=== PATIENT | female | born 1945 | race Hispanic/Latino ===

== ENCOUNTER 2017-11-01 15:41 | Emergency (ER) | payer MEDICARE ==
[~2017-11-01] VITALS: Ht 160 cm; Wt 61.7 kg
[~2017-11-01 15:41] MED LIST: DIOVAN160 MG PO; GLIPIZIDE ER5 MG PO; LISINOPRIL10 MG PO; MELOXICAM7.5 MG PO; METFORMIN HCL500 M2 PO; NIFEDICAL XL30 MG PO; OMEPRAZOLE40 MG PO; SIMVASTATIN40 MG PO
[2017-11-01] MEDS ORDERED: DIATRIZOATE MEGL/DIATRIZOA SOD 30 ML BTL PO ONE (19:15)
[2017-11-01] MEDS ORDERED: ACETAMINOPHEN 325 MG TAB PO ONE (19:15)
--- NOTE | 2017-11-01 19:24 | Diagnostic Imaging Report ---
Exams: Head and cervical spine CTs without IV contrast History: Fall, pain Comparison studies: None. Technique: Axial images were obtained from the brain and cervical spine. Coronal and sagittal images reconstructed from the axial data. Intravenous contrast: None Findings: Head CT: Scalp: Incidental 3 mm dystrophic calcification in the midline frontal scalp. Minimal linear scarring in the left frontal scalp. Bones: No fractures, blastic or lytic lesions. Extra-axial spaces: No masses. No fluid collections. Brain sulci: Mildly prominent. Ventricles: Mild compensatory dilatation. No hydrocephalus. Parenchyma: No mass, acute hemorrhage or acute or chronic cortical vascular insults. Subtle hypodensities in the periventricular white matter are nonspecific most compatible with chronic small vessel ischemic changes. Subtle asymmetric hypodensity in the anterior limb of the left internal capsule may reflect variant prominent perivascular space or chronic small vessel ischemic changes. Sellar/suprasellar region: No abnormalities. Craniocervical junction: The foramen magnum is patent. No Chiari one malformation. Cervical spine CT: Fractures: None. Soft tissues: No gross abnormalities. Atlantoaxial articulation: Intact. Alignment: Normal lordosis. No subluxations. Cervicomedullary junction: No abnormalities. The foramen magnum is patent. Vertebrae: No infection or neoplasm. Degenerative changes: Mildly degenerated disc with mild loss of disc height at C4-C5 and at C5-C6. Mild canal stenosis at C3-C4 due to a broad-based central disc protrusion. Mild canal stenosis at C4-C5 and C5-C6 due to disc osteophyte complexes. Moderate foraminal stenosis bilaterally at C4-C5 and at C5-C6 due to uncovertebral arthrosis. Incidental findings: Atherosclerotic calcifications in the common carotid arteries, cervical carotid bulbs and in the carotid siphons. IMPRESSION: Head CT: 1. No acute abnormalities. 2. Mild generalized volume loss with mild chronic microvascular ischemic changes. Cervical spine CT: 1. No cervical spine fracture or subluxation. 2. Degenerative changes as described. 3. Cannot adequate evaluate ligament, spinal cord and or vascular abnormalities on the basis of this examination. Signed by: Dr. Meir Cifuentes M.D. on 11/01/2017 7:20 PM
[2017-11-01 19:32] LABS: BASOPHILS % 0.2 % (0.0-1.0); EOSINOPHILS % 0.2 % (0.0-6.0); HEMATOCRIT 36.3 % (34.2-44.1); HEMOGLOBIN 12.1 g/dL (12.0-16.0); LYMPHOCYTES % 9.5 % (18.0-39.1); MEAN CORPUSCULAR HEMOGLOBIN 27.9 pg (28-32); MEAN CORPUSCULAR HGB CONC 33.3 g/dL (31-35); MEAN CORPUSCULAR VOLUME 83.8 fL (81-99); MONOCYTES # (AUTO) 0.8 (0.2-0.8); MONOCYTES % 7.6 % (4.4-11.3); NEUTROPHILS # (AUTO) 8.8 (2.1-6.9); NEUTROPHILS % 82.2 % (38.7-80.0); PLATELET COUNT 277 x10e3/uL (140-360); RED BLOOD COUNT 4.33 x10e6/uL (3.6-5.1); RED CELL DISTRIBUTION WIDTH 13.2 % (11.7-14.4)
--- NOTE | 2017-11-01 19:33 | Diagnostic Imaging Report ---
EXAMINATION: Lumbar spine series. CLINICAL HISTORY: AMS, status post fall today COMPARISON: None. DISCUSSION: 5 views of the lumbar spine are submitted for interpretation. Five nonrib-bearing lumbar type vertebral bodies are identified. No acute, displaced fractures or dislocation. No significant spondylolisthesis. Bilateral oblique views show no spondylolysis. Degenerative disc changes in the lower thoracic and lumbosacral spine, with osteophytosis and mild intervertebral disc space narrowing predominantly at T11-T12, L1-L2 and L3-L4. Facet hypertrophy L4-L5 and L5-S1. Vertebral body heights are preserved. Sacroiliac joints are unremarkable. Soft tissues are unremarkable. Marked amount of retained stool in the colon, particularly in the distal sigmoid/rectum IMPRESSION: 1. No acute abnormalities in the lumbosacral spine. 2. Marked amount of retained stool in the colon, particularly in the distal sigmoid/rectum, suggesting constipation. The staff physician below has personally reviewed this exam on the date of dictation. Signed by: Dr. Marvin Lai M.D. on 11/01/2017 7:30 PM
[2017-11-01 19:48] LABS: ALBUMIN 3.6 g/dL (3.5-5.0); ALBUMIN/GLOBULIN RATIO 0.9 (0.8-2.0); ANION GAP 16.2 mmol/L (8-16); CREATININE, SERUM 1.3 mg/dL (0.57-1.11); POTASSIUM 4.2 mmol/L (3.5-5.1)
[2017-11-01 20:03] LABS: BILIRUBIN,URINE NEGATIVE (NEGATIVE); CLARITY,URINE CLEAR (CLEAR); COLOR,URINE YELLOW (YELLOW); KETONES,URINE TRACE (NEGATIVE); LEUKOCYTE ESTERASE ,URINE NEGATIVE (NEGATIVE); NITRITE,URINE NEGATIVE (NEGATIVE); PROTEIN,URINE DIPSTICK 1+ (NEGATIVE); URINE UROBILINOGEN 0.2 mg/dL (0.2 - 1)
[2017-11-01 20:23] LABS: BACTERIA,URINE RARE /HPF; EPITHELIAL CELLS,URINE FEW /LPF; MUCUS,URINE FEW (RARE); RBC,URINE 0-5 /HPF (0-5)
--- NOTE | 2017-11-01 21:26 | Diagnostic Imaging Report ---
KNEE LEFT THREE VIEWS Comparison: None Clinical history: Fall, altered Findings: No fracture or dislocation. Minimal degenerative spurring. No significant joint effusion appreciated on crosstable lateral. Impression: No acute bony abnormality Signed by: Dr Magdalena Leon MD on 11/01/2017 9:23 PM
--- NOTE | 2017-11-01 21:58 | Diagnostic Imaging Report ---
EXAM: CT ABDOMEN/PELVIS WO DATE: 11/01/2017 7:06 PM INDICATION: Abdominal pain status post fall COMPARISON: None TECHNIQUE: The abdomen and pelvis were scanned using a multidetector helical scanner. Coronal and sagittal reformations were obtained. Routine protocol performed. IV Contrast: 0 ml Isovue 370 FINDINGS: Lack of IV contrast decreases sensitivity in evaluating abdominal and pelvic organs. LOWER THORAX: Minimal bibasilar atelectasis/scarring. LIVER/BILIARY: Hepatic steatosis. Poor evaluation for underlying lesion given noncontrast evaluation. Pneumobilia status post cholecystectomy. GALLBLADDER: Absent SPLEEN: Unremarkable PANCREAS: Unremarkable ADRENALS: No nodules KIDNEYS: No stone disease or hydronephrosis. Left inferior renal cystic lesion incompletely characterized. GI TRACT: Postsurgical change status post sigmoidectomy. Scattered diverticuli. Copious rectal stool burden with mild perirectal stranding. VESSELS: Scattered atherosclerotic calcifications PERITONEUM/RETROPERITONEUM: No free air. There is a well-defined collection extending from the greater curvature of the stomach to the left anterior abdominal wall measuring 3 x 2.6 x 8.4 cm. LYMPH NODES: No lymphadenopathy REPRODUCTIVE ORGANS/BLADDER: Unremarkable SOFT TISSUES: Unremarkable BONES: Multilevel degenerative changes. IMPRESSION: 1. Copious rectal stool burden with mild adjacent stranding. 2. Fluid collection extending from the greater curvature of the stomach to the left anterior abdominal wall, likely chronic related to prior hernia repair. Signed by: Dr Magdalena Leon MD on 11/01/2017 9:55 PM
--- NOTE | 2017-11-01 22:38 | Diagnostic Imaging Report ---
SHOULDER LEFT COMPLETE Comparison: None Clinical history: Fall Findings: No fracture or dislocation. Mild to moderate glenohumeral and acromioclavicular degenerative changes. Impression: No acute bony abnormality Signed by: Dr Magdalena Leon MD on 11/01/2017 10:34 PM
== END 2017-11-01 23:03 | disposition home or self-care (01) ==
LOC: ER 15:41
DX: M54.5 Low back pain (principal); S33.5XXA Sprain of ligaments of lumbar spine, initial encounter; S40.011A Contusion of right shoulder, initial encounter; S80.02XA Contusion of left knee, initial encounter; W01.0XXA Fall on same level from slipping, tripping and stumbling without subsequent striking against object, initial encounter; Y93.89 Activity, other specified; Y92.002 Bathroom of unspecified non-institutional (private) residence as the place of occurrence of the external cause; N30.00 Acute cystitis without hematuria; K59.00 Constipation, unspecified; I10 Essential (primary) hypertension; E11.9 Type 2 diabetes mellitus without complications
CPT/HCPCS: 36415; 70450; 72110; 72125; 74176; 80053; 81001; 82150; 83690; 85025

== ENCOUNTER 2019-05-18 11:39 | Inpatient (IN) | payer MEDICARE ==
[~2019-05-18] VITALS: Ht 160 cm; Wt 61.7 kg
--- OUTSIDE RECORDS SUMMARY | 2019-05-18 11:41 | XMS REPORT ---
Author Author [facility] Address Unknown Phone Unavailable Care Team Providers Care Senior Sales Compensation Analyst Name Role Phone Mallory ENG Unavailable Unavailable Problems This patient has no known problems. Allergies, Adverse Reactions, Alerts This patient has no known allergies or adverse reactions. Medications This patient has no known medications. Results Test Description Test Time Test Comments Text Results Atomic Results Result Comments SHOULDER LEFT COMPLETE [place] [address] Patient Name: LATASHA FIGUEROA MR #: [id number] : 1945 Age/Sex: 72/F Req #: [id number] Adm Physician: Ordered by: OLIVIA ENG MD Report #: [id number] Location: ER Room/Bed: Procedure: [id number] DX/SHOULDER LEFT COMPLETE Exam Date: 11/01/17 Exam Time: 2200 REPORT STATUS: Signed SHOULDER LEFT COMPLETE Comparison: None Clinical history: Fall Findings: No fracture or dislocation. Mild to moderate glenohumeral and acromioclavicular degenerative changes. Impression: No acute bony abnormality Signed by: Dr Anamika Leon MD on 11/01/2017 10:34 PM Dictated By: ANAMIKA LEON MD 33 Transcribed By: SHELLI on 11/01/172233 COPY TO: OLIVIA ENG MD KNEE LEFT THREE VIEWS [place] [address] Patient Name: LATASHA FIGUEROA MR #: [id number] : 1945 Age/Sex: 72/F Req #: [id number] Adm Physician: Ordered by: NATO VALENCIA MD Report #: [id number] Location: ER Room/Bed: Procedure: [id number] DX/KNEE LEFT THREE VIEWS Exam Date: 11/01/17 Exam Time: 2029 REPORT STATUS: Signed KNEE LEFT THREE VIEWS Comparison: None Clinical history: Fall, altered Findings: No fracture or dislocation. Minimal degenerative spurring. No significant joint effusion appreciated on crosstable lateral. Impression: No acute bony abnormality Signed by: Dr Anamika Leon MD on 11/01/2017 9:23 PM Dictated By: ANAMIKA LEON MD 22 Transcribed By: SHELLI on 11/01/172122 COPY TO: NATO VALENCIA MD CT ABDOMEN/PELVIS WO [place] [address] Patient Name: LATASHA FIGUEROA MR #: [id number] : 1945 Age/Sex: 72/F Req #: [id number] Adm Physician: Ordered by: NATO VALENCIA MD Report #: [id number] Location: ER Room/Bed: Procedure: [id number] CT/CT ABDOMEN/PELVIS WO Exam Date: 11/01/17 Exam Time: 2014 REPORT STATUS: Signed EXAM: CT ABDOMEN/PELVIS WO DATE: 11/01/2017 7:06 PM INDICATION: Abdominal pain status post fall COMPARISON: None TECHNIQUE: The abdomen and pelvis were scanned using a multidetector helical scanner. Coronal and sagittal reformations were obtained. Routine protocol performed. IV Contrast: 0 ml Isovue 370 FINDINGS: Lack of IV contrast decreases sensitivity in evaluating abdominal and pelvic organs. LOWER THORAX: Minimal bibasilar atelectasis/scarring. LIVER/BILIARY: Hepatic steatosis. Poor evaluation for underlying lesion given noncontrast evaluation. Pneumobilia status post cholecystectomy. GALLBLADDER: Absent SPLEEN: Unremarkable PANCREAS: Unremarkable ADRENALS: No nodules KIDNEYS: No stone disease or hydronephrosis. Left inferior renal cystic lesion incompletely characterized. GI TRACT: Postsurgical change status post sigmoidectomy. Scattered diverticuli. Copious rectal stool burden with mild perirectal stranding. VESSELS: Scattered atherosclerotic calcifications PERITONEUM/RETROPERITONEUM: No free air. There is a well-defined collection extending from the greater curvature of the stomach to the left anterior abdominal wall measuring 3 x 2.6 x 8.4 cm. LYMPH NODES: No lymphadenopathy REPRODUCTIVE ORGANS/BLADDER: Unremarkable SOFT TISSUES: Unremarkable BONES: Multilevel degenerative changes. IMPRESSION: 1. Copious rectal stool burden with mild adjacent stranding. 2. Fluid collection extending from the greater curvature of the stomach to the left anterior abdominal wall, likely chronic related to prior hernia repair. Signed by: Dr Anamika Leon MD on 11/01/2017 9:55 PM Dictated By: ANAMIKA LOEN MD 54 Transcribed By: SHELLI on 10/16 COPY TO: NATO VALENCIA MD SP LUMBAR, COMPLETE MIN 4VW [place] [address] Patient Name: LATASHA FIGUEROA MR #: [id number] : 1945 Age/Sex: 72/F Req #: [id number] [facility] Physician: Ordered by: OLIVIA ENG MD Report #: [id number] Location: Room/Bed: Procedure: [id number] DX/SP LUMBAR, COMPLETE MIN 4VW Exam Date: 11/01/17 Exam Time: 1844 REPORT STATUS: Signed EXAMINATION: Lumbar spine series. CLINICAL HISTORY: AMS, status post fall today COMPARISON: None. DISCUSSION: 5 views of the lumbar spine are submitted for interpretation. Five nonrib-bearing lumbar type vertebral bodies are identified. No acute, displaced fractures or dislocation. No significant spondylolisthesis. Bilateral oblique views show no spondylolysis. Degenerative disc changes in the lower thoracic and lumbosacral spine, with osteophytosis and mild intervertebral disc space narrowing predominantly at T11-T12, L1-L2 and L3-L4. Facet hypertrophy L4-L5 and L5-S1. Vertebral body heights are preserved. Sacroiliac joints are unremarkable. Soft tissues are unremarkable. Marked amount of retained stool in the colon, particularly in the distal sigmoid/rectum IMPRESSION: 1. No acute abnormalities in the lumbosacral spine. 2. Marked amount of retained stool in the colon, particularly in the distal sigmoid/rectum, suggesting constipation. The staff physician below has personally reviewed this exam on the date of dictation. Signed by: Dr. Mariano Lai M.D. on 11/01/2017 7:30 PM Dictated By: MARIANO LAI MD 29 Transcribed By: SHELLI on 11/01/171929 COPY TO: OLIVIA ENG MD CT CERVICAL SPINE WO [facility] [address] [place] [address] Patient Name: LATASHA FIGUEROA MR #: [id number] : 1945 Age/Sex: 72/F Req #: [id number] Adm Physician: Ordered by: OLIVIA ENG MD Report #: [id number] Location: ER Room/Bed: Procedure: [id number] CT/CT CERVICAL SPINE WO Exam Date: 11/01/17 Exam Time: 1830 REPORT STATUS: Signed Exams: Head and cervical spine CTs without IV contrast History: Fall, pain Comparison studies: None. Technique: Axial images were obtained from the brain and cervical spine. Coronal and sagittal images reconstructed from the axial data. Intravenous contrast: None Findings: Head CT: Scalp: Incidental 3 mm dystrophic calcification in the midline frontal scalp. Minimal linear scarring in the left frontal scalp. Bones: No fractures, blastic or lytic lesions. Extra-axial spaces: No masses. No fluid collections. Brain sulci: Mildly prominent. Ventricles: Mild compensatory dilatation. No hydrocephalus. Parenchyma: No mass, acute hemorrhage or acute or chronic cortical vascular insults. Subtle hypodensities in the periventricular white matter are nonspecific most compatible with chronic small vessel ischemic changes. Subtle asymmetric hypodensity in the anterior limb of the left internal capsule may reflect variant prominent perivascular space or chronic small vessel ischemic changes. Sellar/suprasellar region: No abnormalities. Craniocervical junction: The foramen magnum is patent. No Chiari one malformation. Cervical spine CT: Fractures: None. Soft tissues: No gross abnormalities. Atlantoaxial articulation: Intact. Alignment: Normal lordosis. No subluxations. Cervicomedullary junction: No abnormalities. The foramen magnum is patent. Vertebrae: No infection or neoplasm. Degenerative changes: Mildly degenerated disc with mild loss of disc height at C4-C5 and at C5-C6. Mild canal stenosis at C3-C4 due to a broad-based central disc protrusion. Mild canal stenosis at C4-C5 and C5-C6 due to disc osteophyte complexes. Moderate foraminal stenosis bilaterally at C4-C5 and at C5-C6 due to uncovertebral arthrosis. Incidental findings: Atherosclerotic calcifications in the common carotid arteries, cervical carotid bulbs and in the carotid siphons. IMPRESSION: Head CT: 1. No acute abnormalities. 2. Mild generalized volume loss with mild chronic microvascular ischemic changes. Cervical spine CT: 1. No cervical spine fracture or subluxation. 2. Degenerative changes as described. 3. Cannot adequate evaluate ligament, spinal cord and or vascular abnormalities on the basis of this examination. Signed by: Dr. Janelle Cifuentes M.D. on 11/01/2017 7:20 PM Dictated By: JANELLE CIFUENTES MD 19 Transcribed By: SHELLI on 11/01/171919 COPY TO: OLIVIA ENG MD CT BRAIN WO [place] [address] Patient Name: LATASHA FIGUEROA MR #: [id number] : 1945 Age/Sex: 72/F Req #: [id number] Adm Physician: Ordered by: OLIVIA ENG MD Report #: [id number] Location: Room/Bed: Procedure: [id number] CT/CT BRAIN WO Exam Date: 11/01/17 Exam Time: 1830 REPORT STATUS: Signed Exams: Head and cervical spine CTs without IV contrast History: Fall, pain Comparison studies: None. Technique: Axial images were obtained from the brain and cervical spine. Coronal and sagittal images reconstructed from the axial data. Intravenous contrast: None Findings: Head CT: Scalp: Incidental 3 mm dystrophic calcification in the midline frontal scalp. Minimal linear scarring in the left frontal scalp. Bones: No fractures, blastic or lytic lesions. Extra-axial spaces: No masses. No fluid collections. Brain sulci: Mildly prominent. Ventricles: Mild compensatory dilatation. No hydrocephalus. Parenchyma: No mass, acute hemorrhage or acute or chronic cortical vascular insults. Subtle hypodensities in the periventricular white matter are nonspecific most compatible with chronic s mall vessel ischemic changes. Subtle asymmetric hypodensity in the anterior limb of the left internal capsule may reflect variant prominent perivascular space or chronic small vessel ischemic changes. Sellar/suprasellar region: No abnormalities. Craniocervical junction: The foramen magnum is patent. No Chiari one malformation. Cervical spine CT: Fractures: None. Soft tissues: No gross abnormalities. Atlantoaxial articulation: Intact. Alignment: Normal lordosis. No subluxations. Cervicomedullary junction: No abnormalities. The foramen magnum is patent. Vertebrae: No infection or neoplasm. Degenerative changes: Mildly degenerated disc with mild loss of disc height at C4-C5 and at C5-C6. Mild canal stenosis at C3-C4 due to a broad-based central disc protrusion. Mild canal stenosis at C4-C5 and C5-C6 due to disc osteophyte complexes. Moderate foraminal stenosis bilaterally at C4-C5 and at C5-C6 due to uncovertebral arthrosis. Incidental findings: Atherosclerotic calcifications in the common carotid arteries, cervical carotid bulbs and in the carotid siphons.
[2019-05-18 12:47] LABS: BASOPHILS % 0.3 % (0.0-1.0); EOSINOPHILS % 0.1 % (0.0-6.0); HEMATOCRIT 41.9 % (34.2-44.1); HEMOGLOBIN 13.2 g/dL (12.0-16.0); LYMPHOCYTES # (AUTO) 1.8 (1.0-3.2); MEAN CORPUSCULAR HGB CONC 31.5 g/dL (31-35); MONOCYTES # (AUTO) 0.5 (0.2-0.8); MONOCYTES % 6.6 % (4.4-11.3); NEUTROPHILS # (AUTO) 5.5 (2.1-6.9); NEUTROPHILS % 69.7 % (38.7-80.0); PLATELET COUNT 319 x10e3/uL (140-360); RED BLOOD COUNT 4.71 x10e6/uL (3.6-5.1); RED CELL DISTRIBUTION WIDTH 12.7 % (11.7-14.4)
[2019-05-18 13:00] LABS: INR 0.86; PROTHROMBIN TIME 12.2 seconds (11.9-14.5)
--- NOTE | 2019-05-18 13:06 | Diagnostic Imaging Report ---
EXAMINATION: Head CT HISTORY: Slurred speech , headache, dizziness COMPARISON: None available TECHNIQUE: Multidetector axial images were obtained without contrast from the foramen magnum to the vertex . The images were reconstructed using brain and bone algorithms. Thin section brain images were reformatted into coronal and sagittal planes. Image quality: Motion/streaking artifact limits the evaluation of the skull base and posterior cranial fossa. Dose modulation, iterative reconstruction, and/or weight based adjustment of the mA/kV was utilized to reduce the radiation dose to as low as reasonably achievable. FINDINGS: Parenchyma: 1. Few scattered and mildly confluent periventricular white matter hypodensities extending along the anterior limb of the internal capsules, most likely nonspecific chronic microvascular ischemic changes. 2. No mass or hemorrhage. No CT evidence of acute territorial vascular insult. Extra-axial spaces:No abnormal density. No extra-axial fluid collections Brain volume: Normal for age. Ventricles: No hydrocephalus or displacement. Arteries: No density suggestive of thrombus. Dural sinuses: No abnormal density. Extra-axial spaces: No abnormal density. Foramen magnum: No mass, Chiari malformation, or basilar invagination. Sella: No obvious mass. Paranasal/mastoid sinuses: Imaged portions unremarkable. Skull/Scalp: No lytic or blastic lesions. No fractures. IMPRESSION: 1. No acute intracranial hemorrhage or cortical infarcts. 2. Mild white matter chronic microvascular ischemic changes. Signed by: Dr. Cleo Tena M.D. on 05/18/2019 1:02 PM
[2019-05-18 13:09] LABS: ALANINE AMINOTRANSFERASE 14 IU/L (0-55); ALBUMIN 4.1 g/dL (3.5-5.0); ALBUMIN/GLOBULIN RATIO 1.2 (0.8-2.0); ALKALINE PHOSPHATASE 145 IU/L (40-150); ANION GAP 14.1 mmol/L (8-16); BLOOD UREA NITROGEN 20 mg/dL (7-26); BUN/CREATININE RATIO 20 (6-25); CARBON DIOXIDE 23 mmol/L (22-29); CHLORIDE 100 mmol/L (98-107); CREATINE KINASE 14 IU/L (29-168); EST GLOMERULAR FILTRATION RATE 54 ML/MIN (60-); GLUCOSE 285 mg/dL (74-118); POTASSIUM 4.1 mmol/L (3.5-5.1); SODIUM 133 mmol/L (136-145)
--- NOTE | 2019-05-18 13:10 | Diagnostic Imaging Report ---
EXAMINATION: CHEST SINGLE (PORTABLE) INDICATION: Dysarthria COMPARISON: None FINDINGS: LINES/TUBES:EKG leads overlie the chest. LUNGS:The lungs are well-inflated. No focal consolidation or pulmonary edema. PLEURA:No pleural effusion or pneumothorax. MEDIASTINUM:The cardiomediastinal silhouette appears normal in size and shape. BONES/SOFT TISSUES:No acute osseous injury. ABDOMEN:No free air under the diaphragm. IMPRESSION: No focal pneumonia or pulmonary edema. Signed by: Meaghan Hays MD on 05/18/2019 1:06 PM
[2019-05-18 13:13] LABS: CALCIUM 13.1 mg/dL (8.4-10.2); MAGNESIUM 1.1 MG/DL (1.3-2.1)
[2019-05-18] MEDS ORDERED: MAGNESIUM SULFATE 2GM/50ML 50 ML IV ONE (13:15)
[2019-05-18] MEDS ORDERED: SODIUM CHLORIDE 0.9% 500ML 500 ML IV ONE (13:30)
[2019-05-18 13:50] LABS: BILIRUBIN,URINE NEGATIVE (NEGATIVE); CLARITY,URINE CLEAR (CLEAR); COLOR,URINE YELLOW (YELLOW); KETONES,URINE NEGATIVE (NEGATIVE); LEUKOCYTE ESTERASE ,URINE NEGATIVE (NEGATIVE); NITRITE,URINE NEGATIVE (NEGATIVE); PROTEIN,URINE DIPSTICK TRACE (NEGATIVE); URINE UROBILINOGEN 0.2 mg/dL (0.2 - 1)
[2019-05-18 14:18] LABS: BACTERIA,URINE FEW /HPF; EPITHELIAL CELLS,URINE FEW /LPF; RBC,URINE 0-5 /HPF (0-5); WBC,URINE (MAN) 0-5 /HPF (0-5)
[2019-05-18 14:19] LABS: AMORPHOUS SEDIMENT,URINE FEW (FEW)
[2019-05-18] MEDS ORDERED: DEXTROSE 50% SYRINGE 50 ML IV PRN (14:45)
[2019-05-18] MEDS: INSULIN REGULAR, HUMAN 100 UNIT/1 ML 3ML VIAL SQ SCH ×2 (17:10→22:00)
[2019-05-18] MEDS ORDERED: SERTRALINE HCL50 MG PO (17:57)
[2019-05-18 21:27] VITALS: BP 190/92
[2019-05-18 21:37] LABS: CREATINE KINASE < 7 IU/L (29-168)
[2019-05-18 22:00] VITALS: BP 190/92
[2019-05-19] VITALS (8 sets, daily range): BP systolic 143–189; BP diastolic 72–86
[2019-05-19 06:11] LABS: CREATINE KINASE 13 IU/L (29-168)
--- NOTE | 2019-05-19 07:10 | NUR ---
H&P cc: dizziness HPI: 74yoF, PCP Trav Horner, developed dizziness and weakness. Pt was rehab nearby when symptoms developed; Pt also had slurred speech. All hx per daughter at bedside; PMH: DM2, HTN, HLD, physical deconditioning PSHx: herniorraphy Allergies; see emr FH/SH: ; no cigs/etoh; Meds; see MAR ROS: unobtainable V/S: revd PE tired appearing anicteric ns1s2 mod bs soft nt nd no e/t awake; confused skin dry flat affect labs/meds; revd A/P: 74yoF TIA Hypercalcemia Hypomagnesemia Hyponatremia SANTY DM2 HTN HLD PLAN CT brain negative; IV hydration Hba1c/lipids PT consult; Lovenox/ppi Dispo: f/u labs this am; d/w daughter at bedside; Robert Monroe MD, PhD.
[2019-05-19] MEDS: INSULIN REGULAR, HUMAN 100 UNIT/1 ML 3ML VIAL SQ SCH ×4 (07:30→22:22)
[2019-05-19 07:35] LABS: BASOPHILS % 0.3 % (0.0-1.0); EOSINOPHILS % 0.1 % (0.0-6.0); HEMATOCRIT 38.6 % (34.2-44.1); HEMOGLOBIN 12.8 g/dL (12.0-16.0); LYMPHOCYTES # (AUTO) 1.6 (1.0-3.2); LYMPHOCYTES % 22.9 % (18.0-39.1); MEAN CORPUSCULAR HEMOGLOBIN 28.7 pg (28-32); MEAN CORPUSCULAR HGB CONC 33.2 g/dL (31-35); MEAN CORPUSCULAR VOLUME 86.5 fL (81-99); MONOCYTES # (AUTO) 0.7 (0.2-0.8); MONOCYTES % 9.1 % (4.4-11.3); NEUTROPHILS # (AUTO) 4.8 (2.1-6.9); NEUTROPHILS % 67.3 % (38.7-80.0); PLATELET COUNT 348 x10e3/uL (140-360); RED BLOOD COUNT 4.46 x10e6/uL (3.6-5.1)
[2019-05-19 07:47] LABS: BLOOD UREA NITROGEN 16 mg/dL (7-26); BUN/CREATININE RATIO 22 (6-25); CALCIUM 12.4 mg/dL (8.4-10.2); CARBON DIOXIDE 23 mmol/L (22-29); CHLORIDE 103 mmol/L (98-107); CREATININE, SERUM 0.74 mg/dL (0.57-1.11); EST GLOMERULAR FILTRATION RATE > 60 ML/MIN (60-); GLUCOSE 122 mg/dL (74-118); SODIUM 136 mmol/L (136-145)
[2019-05-19 08:00] LABS: MAGNESIUM 1.6 MG/DL (1.3-2.1); PHOSPHORUS 2.5 MG/DL (2.3-4.7)
[2019-05-19 08:05] LABS: CHOL/HDL RATIO 4.2 (3.0-3.6)
[2019-05-19 09:00] LABS: CREATINE KINASE MB 0.6 ng/mL (0-5.0)
[2019-05-19] MEDS ORDERED: PANTOPRAZOLE SOD 40 MG TABEC PO SCH (09:00)
[2019-05-19] MEDS ORDERED: ASPIRIN 325 MG TAB PO SCH (09:00)
[2019-05-19] MEDS: SERTRALINE HCL 50 MG TAB PO SCH (09:19)
[2019-05-19] MEDS: NIFEDIPINE CR 30 MG TAB PO SCH (09:19)
[2019-05-19] MEDS: SODIUM CHLORIDE 0.9% 1000ML 1,000 ML IV SCH ×2 (09:19→18:28)
[2019-05-19] MEDS: PANTOPRAZOLE SOD 40 MG TABEC PO SCH (09:58)
[2019-05-19] MEDS: ENOXAPARIN SOD INJ 40 MG/0.4 ML SYR SC SCH (16:21)
[2019-05-19] MEDS: SIMVASTATIN 40 MG TAB PO SCH (21:44)
[2019-05-20] VITALS (8 sets, daily range): BP systolic 144–174; BP diastolic 70–91
[2019-05-20] MEDS: SODIUM CHLORIDE 0.9% 1000ML 1,000 ML IV SCH ×3 (06:07→21:32)
[2019-05-20] MEDS: SERTRALINE HCL 50 MG TAB PO SCH (08:22)
[2019-05-20] MEDS: INSULIN REGULAR, HUMAN 100 UNIT/1 ML 3ML VIAL SQ SCH ×4 (08:22→21:00)
[2019-05-20] MEDS: NIFEDIPINE CR 30 MG TAB PO SCH (08:22)
[2019-05-20] MEDS: ASPIRIN 81 MG CHEW TAB PO SCH (08:22)
--- NOTE | 2019-05-20 09:18 | NUR ---
IM- progress O/N: no events ROS: unobtainable V/S: revd PE tired appearing anicteric ns1s2 mod bs soft nt nd no e/t awake; confused skin dry flat affect labs/meds; revd A/P: 74yoF TIA Hypercalcemia Hypomagnesemia Hyponatremia SANTY DM2 HTN HLD PLAN CT brain negative; IV hydration Hba1c/lipids PT consult; Lovenox/ppi Dispo: f/u labs this am; d/w daughter at bedside; 3 check labs; Hba1c/LDL 9.7/94 Robert Monroe MD, PhD.
[2019-05-20 10:42] LABS: ANION GAP 13.1 mmol/L (8-16); BLOOD UREA NITROGEN 10 mg/dL (7-26); BUN/CREATININE RATIO 12 (6-25); CALCIUM 12.7 mg/dL (8.4-10.2); CARBON DIOXIDE 22 mmol/L (22-29); CHLORIDE 102 mmol/L (98-107); CREATININE, SERUM 0.86 mg/dL (0.57-1.11); EST GLOMERULAR FILTRATION RATE > 60 ML/MIN (60-); GLUCOSE 309 mg/dL (74-118); POTASSIUM 4.1 mmol/L (3.5-5.1); SODIUM 133 mmol/L (136-145)
--- NOTE | 2019-05-20 12:21 | NUR ---
Call placed to Dr. Monroe for inpatient order. Pt continues to have hypercalcemia. Awaiting his return call for orders.
--- NOTE | 2019-05-20 13:48 | NUR ---
Dr. Monroe returned call and was notified of elevated calcium, and 2 day obs order. He stated he wanted to see the pt and assess before making a dc plan decision. He will see the pt later this day.
[2019-05-20] MEDS: ENOXAPARIN SOD INJ 40 MG/0.4 ML SYR SC SCH (16:58)
[2019-05-20] MEDS ORDERED: FUROSEMIDE INJ 10 MG/ML 2 ML VIAL IV NR (20:00)
[2019-05-20] MEDS: SIMVASTATIN 40 MG TAB PO SCH (21:38)
[2019-05-21] VITALS (8 sets, daily range): BP systolic 134–177; BP diastolic 64–81
[2019-05-21 05:22] LABS: BASOPHILS % 0.3 % (0.0-1.0); EOSINOPHILS % 0.2 % (0.0-6.0); HEMATOCRIT 36.7 % (34.2-44.1); HEMOGLOBIN 11.8 g/dL (12.0-16.0); LYMPHOCYTES # (AUTO) 1.7 (1.0-3.2); LYMPHOCYTES % 29.2 % (18.0-39.1); MEAN CORPUSCULAR HEMOGLOBIN 28.5 pg (28-32); MEAN CORPUSCULAR HGB CONC 32.2 g/dL (31-35); MEAN CORPUSCULAR VOLUME 88.6 fL (81-99); MONOCYTES # (AUTO) 0.5 (0.2-0.8); MONOCYTES % 9.1 % (4.4-11.3); NEUTROPHILS # (AUTO) 3.6 (2.1-6.9); NEUTROPHILS % 60.9 % (38.7-80.0); PLATELET COUNT 320 x10e3/uL (140-360); RED BLOOD COUNT 4.14 x10e6/uL (3.6-5.1); RED CELL DISTRIBUTION WIDTH 13.2 % (11.7-14.4)
[2019-05-21 05:50] LABS: BLOOD UREA NITROGEN 9 mg/dL (7-26); BUN/CREATININE RATIO 11 (6-25); CALCIUM 11.3 mg/dL (8.4-10.2); CARBON DIOXIDE 21 mmol/L (22-29); CHLORIDE 107 mmol/L (98-107); CREATININE, SERUM 0.79 mg/dL (0.57-1.11); EST GLOMERULAR FILTRATION RATE > 60 ML/MIN (60-); GLUCOSE 242 mg/dL (74-118); SODIUM 139 mmol/L (136-145)
--- NOTE | 2019-05-21 07:00 | NUR ---
BEDSIDE SHIFT REPORT RECEIVED FROM THE FUEL BUYER RN. EDUCATED PT ABOUT FALL PRECAUTIONS. FAMILY AT BEDSIDE. BED IS LOW AND LOCKED. SIDE RAILS X2. BED ALARM IS ON. CALL LIGHT WITH IN EASY REACH. INSTRUCTED PT TO USE CALL LIGHT FOR ANY NEEDS. PT DENIES NEEDS AT THIS TIME.
--- NOTE | 2019-05-21 07:17 | NUR ---
IM- progress O/N: no events ROS: unobtainable V/S: revd PE tired appearing anicteric ns1s2 mod bs soft nt nd no e/t awake; confused skin dry flat affect labs/meds; revd A/P: 74yoF TIA Hypercalcemia Hypomagnesemia Hyponatremia SANTY DM2 HTN HLD PLAN CT brain negative; IV hydration Hba1c/lipids PT consult; Lovenox/ppi Dispo: f/u labs this am; d/w daughter at bedside; 11-3 check labs; Hba1c/LDL 9.7/94 11-4 Ca improving; rec'd more fluids and lasix x1. f/u studies; cont care; f/u MRI Robert Monroe MD, PhD.
[2019-05-21] MEDS: INSULIN REGULAR, HUMAN 100 UNIT/1 ML 3ML VIAL SQ SCH ×4 (08:30→21:10)
[2019-05-21] MEDS: SODIUM CHLORIDE 0.9% 1000ML 1,000 ML IV SCH ×3 (08:47→22:38)
[2019-05-21] MEDS: PANTOPRAZOLE SOD 40 MG TABEC PO SCH (08:53)
[2019-05-21] MEDS: ASPIRIN 81 MG CHEW TAB PO SCH (08:53)
[2019-05-21] MEDS: SERTRALINE HCL 50 MG TAB PO SCH (08:53)
[2019-05-21] MEDS: NIFEDIPINE CR 30 MG TAB PO SCH (08:54)
--- NOTE | 2019-05-21 12:15 | NUR ---
PAGED DR TOLEDO AND REPORTED PT BLOOD SUGAR LEVEL.
--- NOTE | 2019-05-21 12:30 | NUR ---
PAGED DR. TOLEDO TO REMOVE TELE FOR MRI, PER THE REQUEST FROM OVERHEAD CRANE INSPECTOR.
--- NOTE | 2019-05-21 13:05 | NUR ---
CALL BACK FROM DR. TOLEDO START LANTUS DAILY 7 UNITS. FIRST DOSE NOW. OKAY TO D/C TELEMETRY FOR MRI.
[2019-05-21] MEDS: INSULIN GLARGINE 100 UNITS/ML VIAL SQ SCH (13:27)
--- NOTE | 2019-05-21 14:59 | NUR ---
Nutrition Screen Note RD Recommendation for Physician: - Continue current diet Plan of Care: RD following, monitoring for tolerance and adequacy Nutrition reason for involvement: Nutrition Risk Trigger- MST Primary Diagnose(s): hypercalcemia, hypomagnesemia, dizziness, weakness PMH: DM2, HTN, HLD Ht: 63 in Wt: 136 lb BMI: 24.1 kg/m2 IBW: [address] Assessment: (05/21) 74 YOF admitted for hypercalcemia, seen today per MST screen. Pt discussed during am rounds. Pt reports good appetite and po intake ALGOLOGIST and currently, noted 75% intake per chart. Pt denies N/V/C/D. Pt denies wt loss, reports UBW of 143lb- pt weighed 145 lb at time of visit, questionable admit wt. Chart reviewed. Labs and meds reviewed. Skin intact. Will continue to monitor. Current Diet: 1800 ADA Malnutrition Evaluation (05/21/19) The patient does not meet criteria for a specified degree of malnutrition at this time. Will re-evaluate at follow-up as appropriate. Diet Education Needs Assessment: Diet education not indicated. Diet tolerance: tolerating Nutrition Care Level: Low Signed: Kallie Heredia RD, LD, [facility]
--- NOTE | 2019-05-21 15:15 | NUR ---
PT OFF UNIT FOR PROCEDURE IN SAFE CONDITION
--- NOTE | 2019-05-21 16:30 | NUR ---
PT BACK TO UNIT AFTER PROCEDURE.
[2019-05-21] MEDS: ENOXAPARIN SOD INJ 40 MG/0.4 ML SYR SC SCH (16:36)
--- NOTE | 2019-05-21 18:44 | Diagnostic Imaging Report ---
EXAMINATION: Brain MRI and MR angiogram of the [place] and [place] CLINICAL HISTORY: Dizziness, scattered speech for 5 days, evaluate for acute stroke. Hyperglycemia. COMPARISON: Head CT 05/18/2019 TECHNIQUE: Brain: Sagittal T2; axial DWI, T2, FLAIR, T1-IR, T2 gradient echo; coronal FLAIR. MRAs: 3D TOF and 2D-TOF images were obtained of the brain and neck. Image quality: Motion artifact mildly limits evaluation of some of the sequences include the angiograms. BRAIN MRI FINDINGS: Parenchyma: 1. Few scattered and periventricular white matter T2 and FLAIR hyperintense foci, most likely nonspecific chronic microvascular ischemic changes. 2. No mass, hemorrhage, acute or chronic infarcts. Skull: Unremarkable. Vessels: Expected flow voids present in the major arteries and dural sinuses. Extra-axial spaces: No abnormal signal intensity or mass effect. Brain volume: Within normal limits for age. Ventricles: No hydrocephalus or displacement. Foramen magnum: Unremarkable. Sella: Unremarkable. Paranasal / mastoid sinuses: No significant inflammatory disease. MRA OF [place] : The distal internal carotid, distal vertebral, basilar, and cerebral arteries are patent. No significant stenosis, occlusion, aneurysm, or arteriovenous malformation is seen. Anatomic variation: Anterior Communicating Artery: Not well visualized Posterior Communicating Arteries: Not well visualized Vertebral arteries: Codominant MRA OF THE NECK: If present, stenosis of the carotid bulbs is measured based on NASCET criteria i.e area of maximum stenosis compared to the cervical ICA distal to the bulb. Aortic arch and origin of the vessels: Unremarkable. Right Carotid Artery: The common carotid, carotid bulb, internal and external carotid arteries at the level of the neck are normal in caliber, and patent, no evidence of stenoses. Left Carotid Artery: The common carotid, carotid bulb, internal and external carotid arteries at the level of the neck are normal in caliber, and patent, no evidence of stenoses. Vertebral Arteries: Both are normal in morphology and caliber. Both are codominant. No significant stenosis is seen. IMPRESSION: Overall suboptimal studies due to patient's motion. Brain MRI: 1. No acute infarct. 2. Mildly nonspecific white matter chronic microvascular ischemic changes, stable compared to head CT of 05/18/2019. MR angiography of the head and neck: No large vessel occlusion or hemodynamically significant stenosis of the carotid or vertebral arteries in the head or neck. Signed by: Dr. Cleo Tena M.D. on 05/21/2019 6:41 PM
--- NOTE | 2019-05-21 19:00 | NUR ---
BEDSIDE SHIFT REPORT GIVEN TO THE CRITICAL CARE RN RN. PT DENIED FURTHER NEEDS. PT FAMILY AT BEDSIDE.
[2019-05-21] MEDS: SIMVASTATIN 40 MG TAB PO SCH (20:56)
[2019-05-22 00:10] VITALS: BP 163/97
[2019-05-22 04:57] VITALS: BP 168/87
[2019-05-22 05:17] LABS: BASOPHILS % 0.2 % (0.0-1.0); EOSINOPHILS % 0.2 % (0.0-6.0); HEMATOCRIT 34.8 % (34.2-44.1); HEMOGLOBIN 11.3 g/dL (12.0-16.0); LYMPHOCYTES # (AUTO) 1.7 (1.0-3.2); LYMPHOCYTES % 31.3 % (18.0-39.1); MEAN CORPUSCULAR HEMOGLOBIN 28.6 pg (28-32); MEAN CORPUSCULAR HGB CONC 32.5 g/dL (31-35); MEAN CORPUSCULAR VOLUME 88.1 fL (81-99); MONOCYTES # (AUTO) 0.5 (0.2-0.8); NEUTROPHILS # (AUTO) 3.1 (2.1-6.9); NEUTROPHILS % 58.1 % (38.7-80.0); PLATELET COUNT 316 x10e3/uL (140-360); RED BLOOD COUNT 3.95 x10e6/uL (3.6-5.1); RED CELL DISTRIBUTION WIDTH 13.1 % (11.7-14.4)
[2019-05-22 05:33] LABS: ANION GAP 12.7 mmol/L (8-16); BLOOD UREA NITROGEN 6 mg/dL (7-26); BUN/CREATININE RATIO 8 (6-25); CALCIUM 11.3 mg/dL (8.4-10.2); CARBON DIOXIDE 22 mmol/L (22-29); CHLORIDE 107 mmol/L (98-107); CREATININE, SERUM 0.74 mg/dL (0.57-1.11); EST GLOMERULAR FILTRATION RATE > 60 ML/MIN (60-); GLUCOSE 239 mg/dL (74-118); POTASSIUM 3.7 mmol/L (3.5-5.1); SODIUM 138 mmol/L (136-145)
--- NOTE | 2019-05-22 06:32 | NUR ---
IM- progress O/N: no events ROS: unobtainable V/S: revd PE tired appearing anicteric ns1s2 mod bs soft nt nd no e/t awake; confused skin dry flat affect labs/meds; revd A/P: 74yoF TIA Hypercalcemia Hypomagnesemia Hyponatremia SANTY DM2 HTN HLD PLAN CT brain negative; IV hydration Hba1c/lipids PT consult; Lovenox/ppi Dispo: f/u labs this am; d/w daughter at bedside; 05-20 check labs; Hba1c/LDL 9.7/94 - Ca improving; rec'd more fluids and lasix x1. f/u studies; cont care; f/u MRI 05-22 MRI/A negative; continue rehydration. give pamidronate now; recheck Ca in PM; possible d/c later today Robert Monroe MD, PhD.
[2019-05-22] MEDS: SODIUM CHLORIDE 0.9% 1000ML 1,000 ML IV SCH ×2 (07:00→14:21)
--- NOTE | 2019-05-22 07:00 | NUR ---
BEDSIDE SHIFT REPORT RECEIVED FROM THE MAINTENANCE MANAGER RN. EDUCATED PT ABOUT FALL PRECAUTIONS. FAMILY AT BEDSIDE. BED IS LOW AND LOCKED. SIDE RAILS X2. BED ALARM IS ON. CALL LIGHT WITH IN EASY REACH. INSTRUCTED PT TO USE CALL LIGHT FOR ANY NEEDS. PT VERBALIZED UNDERSTANDING. PT DENIES NEEDS AT THIS TIME.
[2019-05-22 07:22] VITALS: BP 112/61
[2019-05-22 07:41] VITALS: BP 112/61
[2019-05-22] MEDS: INSULIN REGULAR, HUMAN 100 UNIT/1 ML 3ML VIAL SQ SCH ×3 (08:00→16:45)
[2019-05-22] MEDS ORDERED: PAMIDRONATE DISODIUM 30 MG/VIAL IV STA (08:10)
[2019-05-22] MEDS: ASPIRIN 81 MG CHEW TAB PO SCH (08:14)
[2019-05-22] MEDS: PANTOPRAZOLE SOD 40 MG TABEC PO SCH (08:15)
[2019-05-22] MEDS: NIFEDIPINE CR 30 MG TAB PO SCH (08:15)
[2019-05-22] MEDS: SERTRALINE HCL 50 MG TAB PO SCH (08:16)
[2019-05-22] MEDS: INSULIN GLARGINE 100 UNITS/ML VIAL SQ SCH (09:00)
[2019-05-22] MEDS ORDERED: PAMIDRONATE DISODIUM 60 MG in SODIUM CHLORIDE 0.9% 500ML 500 ML IV ONE (09:15)
[2019-05-22 11:10] VITALS: BP 150/67
--- NOTE | 2019-05-22 14:15 | NUR ---
Visit made by the Spiritual Care Department Pastoral Visitor, Niharika Charles. PV provided pastoral presence, prayer, hospitality, and supportive listening. Pastoral Visitor informed pt/family of the scope of [employer] and availability. DIANE ANGEL Farm Equipment Maintenance Supervisor Spiritual Care Department O: [phone] Pager: [phone] ([phone] calling from)
[2019-05-22 15:17] VITALS: BP 135/64
[2019-05-22] MEDS: ENOXAPARIN SOD INJ 40 MG/0.4 ML SYR SC SCH (16:44)
--- NOTE | 2019-05-22 18:15 | NUR ---
BLOOD GIVEN TO THE LAB FOR BMP. WAITING FOR THE RESULT PER DR. TOLEDO. INFORMED THE STATUS TO DR. TOLEDO.
[2019-05-22 18:39] LABS: ANION GAP 10.9 mmol/L (8-16); BLOOD UREA NITROGEN 9 mg/dL (7-26); BUN/CREATININE RATIO 10 (6-25); CALCIUM 11.7 mg/dL (8.4-10.2); CARBON DIOXIDE 24 mmol/L (22-29); CHLORIDE 104 mmol/L (98-107); EST GLOMERULAR FILTRATION RATE > 60 ML/MIN (60-); GLUCOSE 306 mg/dL (74-118); POTASSIUM 3.9 mmol/L (3.5-5.1); SODIUM 135 mmol/L (136-145)
--- NOTE | 2019-05-22 18:50 | NUR ---
PAGED DR. TOLEDO AND REPORTED CALCIUM LEVEL. NO NEW ORDERS RECEIVED.
--- NOTE | 2019-05-22 19:00 | NUR ---
BEDSIDE SHIFT REPORT GIVEN TO THE CHIEF OF SURGERY RN . PT DENIED FURTHER NEEDS.
--- NOTE | 2019-05-22 19:16 | NUR ---
D/C PT PER DR. TOLEDO. PRESCRIPTION WILL FAX TO THE PT PHARMACY PER THE DR. INFORMED THE SAME TO PT AND DAUGHTER AT BEDSIDE. PT REQUESTING [facility] AT [address] [facility] [id number]. FAX NO AND PHONE NO GIVEN TO THE . PT AND DAUGHTER DENIED FURTHER NEEDS.
--- NOTE | 2019-05-22 19:54 | NUR ---
Discharge Summary Principal Dx: TIA Hypercalcemia Hypomagnesemia Hyponatremia SANTY Secondary Dx: DM2 HTN HLD PLAN CT brain negative; IV hydration Hba1c/lipids PT consult; Lovenox/ppi Dispo: f/u labs this am; d/w daughter at bedside; 05-20 check labs; Hba1c/LDL 9.7/94 - Ca improving; rec'd more fluids and lasix x1. f/u studies; cont care; f/u MRI 05-22 MRI/A negative; continue rehydration. give pamidronate now; recheck Ca in PM; possible d/c later today f/u PCP 1 week Stable d/c>35mins d/c home Robert Monroe MD, PhD.
[2019-05-22] MEDS ORDERED: ASPIR 8181 MG PO (19:56)
--- NOTE | 2019-05-22 20:00 | NUR ---
DISCHARGE PATIENT HOME. VITAL SIGN STABLE AT THIS TIME.
== END 2019-05-22 19:56 | disposition home or self-care (01) | DRG 69 ==
LOC: ER 11:39 → ERHOLD 14:34 → MED/SURG2 21:28 → OBSVTOIN 05-21 13:01
PROVIDERS: ADMIT Internal Medicine; ATTEND Internal Medicine
DX: G45.9 Transient cerebral ischemic attack, unspecified (principal); N17.9 Acute kidney failure, unspecified; E83.52 Hypercalcemia; E83.42 Hypomagnesemia; E87.6 Hypokalemia; E11.9 Type 2 diabetes mellitus without complications; I10 Essential (primary) hypertension; E78.5 Hyperlipidemia, unspecified; R53.81 Other malaise; Z88.5 Allergy status to narcotic agent; Z88.0 Allergy status to penicillin; Z79.82 Long term (current) use of aspirin; Z79.84 Long term (current) use of oral hypoglycemic drugs
CPT/HCPCS: 36415; 70450; 70544; 70547; 70551; 71045; 80048; 80053; 80061; 81001; 82550; 82553; 82948; 83036; 83735; 83880; 83970; 84100; 84165; 84484; 85025; 85610; 85730; 93005; 96372; 97139; 99284; G0378; J1650; J1815; J1817; J2430; J3475; J7030; J7040